=== PATIENT | female | born 1955 | race Caucasian/White ===

== ENCOUNTER 2021-12-23 08:14 | Day surgery (SDC) | payer MEDICARE, BC ==
[~2021-12-23 08:14] MED LIST: Midazolam 1 MG/ML 2 ML SDV ONE; Propofol 200 MG/20 ML SDV ONE
[2021-12-23] MEDS ORDERED: Lactated Ringers 1,000 ML IV SCH (08:15)
[2021-12-23] MEDS ORDERED: Sodium Chloride 0.9% 10 ML Syringe FLUSH PRN (08:15)
[2021-12-23] MEDS ORDERED: Lidocaine 2% 5 ML SDV ONE (09:15)
[2021-12-23] MEDS ORDERED: Glycopyrrolate 0.2 MG/ML SDV IVPUSH ONE (09:15)
== END 2021-12-23 10:00 | disposition home or self-care (01) ==
LOC: LL.SDS 08:14
PROVIDERS: ATTEND Surgery
DX: K20.90 Esophagitis, unspecified without bleeding (principal); K22.70 Barrett's esophagus without dysplasia; K22.89 Other specified disease of esophagus; E11.9 Type 2 diabetes mellitus without complications; I10 Essential (primary) hypertension; E87.6 Hypokalemia; E83.42 Hypomagnesemia; E03.8 Other specified hypothyroidism
CPT/HCPCS: 43239; 82947; J2250; J2704; J3490; J7120

== ENCOUNTER 2022-08-22 11:44 | Emergency (ER) | payer MEDICARE, BC ==
[2022-08-22 11:52] VITALS: BP 152/73; PULSE 74
[2022-08-22] MEDS ORDERED: Bupivacaine 0.5% 10 ML SDV INJECT ONE (12:22)
[2022-08-22] MEDS ORDERED: Lidocaine 1% 5 ML VIAL INJECT ONE (12:23)
[2022-08-22] MEDS ORDERED: Cephalexin 500 MG Cap PO ONE (12:23)
[2022-08-22] MEDS ORDERED: Bacitracin Oint 1 GM U/D Packet TOP ONE (12:25)
== END 2022-08-22 13:05 | disposition home or self-care (01) ==
LOC: LL.ED 11:44
DX: S61.214A Laceration without foreign body of right ring finger without damage to nail, initial encounter (principal); I10 Essential (primary) hypertension; E11.9 Type 2 diabetes mellitus without complications; E03.9 Hypothyroidism, unspecified; Z88.5 Allergy status to narcotic agent; Z88.2 Allergy status to sulfonamides; Z79.82 Long term (current) use of aspirin; Z79.899 Other long term (current) drug therapy; W23.0XXA Caught, crushed, jammed, or pinched between moving objects, initial encounter
CPT/HCPCS: 64450; 73130-RT; 99283; A9270-GY; J3490

== ENCOUNTER 2023-04-16 14:51 | Emergency (ER) | payer BC, MEDICARE ==
[2023-04-16] MEDS ORDERED: Naloxone 0.4 MG/ML SDV IVPUSH PRN (15:11)
[2023-04-16 15:13] LABS: BASOPHILS ABSOLUTE AUTO 0.01 K/uL (0.00-0.20); BASOPHILS PERCENT AUTO 0.4 % (0.0-2.0); EOSINOPHILS ABSOLUTE AUTO 0.01 K/uL (0.00-0.50); EOSINOPHILS PERCENT AUTO 0.4 % (0.0-5.0); HEMATOCRIT 43.4 % (34.0-46.0); HEMOGLOBIN 14.2 g/dL (11.7-15.5); LYMPHOCYTES ABSOLUTE AUTO 0.46 K/uL (0.50-3.50); LYMPHOCYTES PERCENT AUTO 18.5 % (10.0-50.0); MEAN CORPUSCULAR HEMOGLOBIN 28.5 pg (28.2-33.3); MEAN CORPUSCULAR HGB CONC 32.7 g/dL (31.7-36.0); MEAN CORPUSCULAR VOLUME 87.1 fL (84.0-98.0); MONOCYTES ABSOLUTE AUTO 0.01 K/uL (0.00-1.00); MONOCYTES PERCENT AUTO 0.4 % (2.0-14.0); NEUTROPHILS PERCENT AUTO 80.3 % (45.0-80.0); PLATELET COUNT,PLT 248 K/uL (150-350); RED BLOOD CELL COUNT 4.98 M/uL (3.77-5.09); RED CELL DISTRIBUTION WIDTH 12.9 % (11.2-14.1); WHITE BLOOD CELL COUNT,WBC 2.5 K/uL (4.0-10.2)
[2023-04-16 15:16] LABS: APPEARANCE,URINE SLIGHTLY CLOUDY; BILIRUBIN,URINE NEGATIVE (NEGATIVE); COLOR,URINE YELLOW; GLUCOSE,URINE NEGATIVE (NEGATIVE); KETONES,URINE 40 mg/dL (NEGATIVE); LEUKOCYTE ESTERASE,URINE TRACE (NEGATIVE); NITRITE,URINE NEGATIVE (NEGATIVE); OCCULT BLOOD,URINE SMALL (NEGATIVE); PROTEIN,URINE 30 mg/dL (NEGATIVE); UROBILINOGEN,URINE 0.2 E.U./dL (0.2-1.0)
[2023-04-16] MEDS: fentaNYL 50 MCG/ML SDV IVPUSH ONE (15:25)
[2023-04-16] MEDS: Ondansetron 4 MG/2 ML SDV IVPUSH ONE (15:26)
[2023-04-16] MEDS: Lactated Ringers 1,000 ML IV SCH ×2 (15:26→18:06)
[2023-04-16 15:33] LABS: BACTERIA,URINE FEW /HPF (NONE TO FEW); EPITHELIAL CELLS,URINE FEW /LPF; RBC,URINE 0-5 /HPF
[2023-04-16 15:36] LABS: ALANINE AMINOTRANSFERASE,ALT 49 U/L (12-78); ALBUMIN 3.4 g/dL (3.4-5.0); ALKALINE PHOSPHATASE 171 IU/L (46-116); ANION GAP 13.3 meq/L (7-15); ASPARTATE AMNIOTRANSFERASE,AST 25 U/L (15-37); BILIRUBIN TOTAL 0.7 mg/dL (0.2-1.0); BLOOD UREA NITROGEN,BUN 11 mg/dL (7-18); CALCIUM 8.5 mg/dL (8.5-10.1); CARBON DIOXIDE,CO2 29.4 mmol/L (21.0-32.0); CHLORIDE,CL 95 mmol/L (98-107); CREATININE 1.39 mg/dL (0.51-1.17); ESTIMATED GFR 41 mL/min (>=60); GLUCOSE RANDOM 176 mg/dL (70-99); POTASSIUM,K 3.7 mmol/L (3.5-5.1); PROTEIN TOTAL,TP 6.6 g/dL (6.4-8.2); SODIUM,NA 134 mmol/L (136-145)
[2023-04-16 16:03] LABS: CORONAVIRUS COVID-19 NAA NEGATIVE (NEGATIVE); INFLUENZA A NAA NEGATIVE (NEGATIVE); INFLUENZA B NAA NEGATIVE (NEGATIVE); RESPIRATORY SYNCYTIAL VIR NAA NEGATIVE (NEGATIVE)
[2023-04-16] MEDS: Cefepime 2 GM Vial IVPUSH ONE (16:07)
[2023-04-16] MEDS: Prochlorperazine 10 MG/2 ML SDV IVPUSH ONE (16:28)
[2023-04-16] MEDS: Sodium Chloride 0.9% 10 ML Syringe FLUSH PRN (16:28)
[2023-04-16] MEDS: fentaNYL 50 MCG/ML SDV IVPUSH PRN (16:32)
== END 2023-04-16 18:30 ==
LOC: SUPCPDRO 14:51 → LL.ED 14:51
DX: N13.2 Hydronephrosis with renal and ureteral calculous obstruction (principal); N39.0 Urinary tract infection, site not specified; I10 Essential (primary) hypertension; E11.9 Type 2 diabetes mellitus without complications; E03.9 Hypothyroidism, unspecified; Z90.49 Acquired absence of other specified parts of digestive tract; Z79.82 Long term (current) use of aspirin; Z79.899 Other long term (current) drug therapy; Z79.84 Long term (current) use of oral hypoglycemic drugs; Z88.5 Allergy status to narcotic agent; Z88.1 Allergy status to other antibiotic agents; Z88.2 Allergy status to sulfonamides
CPT/HCPCS: 0241U; 36415; 71046; 74176; 80053; 81001; 83605; 84484; 85025; 85610; 87040; 87086; 87088; 93005; 96361; 96374; 96375; 96376; 99285; J0692; J0780; J2405; J3010; J7120; 87077; J3490